=== PATIENT | male | born 2000 | race Caucasian/White ===

== ENCOUNTER 2023-02-06 12:31 | Emergency (ER) | payer MEDICAID, SELFPAY ==
[2023-02-06 12:49] VITALS: BP 146/79; PULSE 90; RESP 16; TEMP 37.1; O2SAT 100; BMI 31.1
--- NOTE | 2023-02-06 13:00 | ED_ITS ---
HPI - General Adult General Chief complaint: Skin/Abscess/Foreign Body Stated complaint: infected left thumb Time Seen by Provider: 02/06/23 12:55 Source: patient Mode of arrival: ambulatory Limitations: no limitations History of Present Illness HPI narrative: 22-year-old male coming in today complaining of infection is some these notice for several days. Denies any systemic symptoms. States that he bites his nails and cuticles frequently. Related Data Previous Rx's Medication Instructions Recorded sulfamethoxazole 800 1 tab PO BID 7 days #14 tabs 02/06/23 mg-trimethoprim 160 mg tablet (Bactrim DS) Allergies Allergy/AdvReac Type Severity Reaction Status Date / Time No Known Drug Allergies Allergy Verified 02/06/23 12:48 Review of Systems Status of ROS: Reports: 6 or more systems reviewed and unremarkable except as noted in History and below PFSH [facility] Social History Smoking Status: Never smoker Do you use any of these nicotine containing products: None Second hand tobacco smoke exposure: No How often do you have a drink containing alcohol: never AUDIT-C Alcohol total score: 0 Non-prescribed substance use: marijuana (any form) service: No Exam Narrative: Exam Narrative: Anxious young male. Alert and oriented. Answers questions appropriately. Mood and affect are appropriate. Thoughts are goal oriented and rational. No tangential or magical thinking noted. Patient speaks in full sentences without needing to catch his breath. HEENT: Normocephalic atraumatic. Pupils are equally round reactive to light. Extraocular muscles are intact. Conjunctivae are moist without any icterus noted. Moist mucous membranes. Extremities: Patient has an obvious paronychia of the left thumb with a small abscess that is visible over the lateral nail border. Const: Vital Signs, click to edit/add: Vital Signs - 24 hr 02/06/23 12:49 Temperature 98.8 F Pulse Rate [Pulse Oximeter] 90 Respiratory Rate 16 Blood Pressure [Ri ght Upper Arm] 146/79 H Pulse Oximetry 100 Oxygen Delivery Me thod Room Air Course Course Hospital Course: Finger clean with alcohol an 11 blade inserted at the tip of the abscess, approximately 0.5 mL of dylan pus drained. Vital Signs Vital signs: Initial Vital Signs Temperature 98.8 F 02/06/23 12:49 Temperature Source Temporal Artery Scan 02/06/23 12:49 Pulse Rate 90 02/06/23 12:49 Pulse Rhythm Regular 02/06/23 12:49 Pulse Strength 3+ Normal 02/06/23 12:49 Respiratory Rate 16 02/06/23 12:49 Blood Pressure 146/79 H 02/06/23 12:49 Blood Pressure Mean 101 02/06/23 12:49 Blood Pressure Position Sitting 02/06/23 12:49 Pulse Oximetry 100 02/06/23 12:49 Oxygen Delivery Method Room Air 02/06/23 12:49 Vital Signs Temperature 98.8 F 02/06/23 12:49 Pulse Rate 90 02/06/23 12:49 Respiratory Rate 16 02/06/23 12:49 Blood Pressure 146/79 H 02/06/23 12:49 Pulse Oximetry 100 02/06/23 12:49 Oxygen Delivery Method Room Air 02/06/23 12:49 Temperature 98.8 F 02/06/23 12:49 Pulse Rate 90 02/06/23 12:49 Respiratory Rate 16 02/06/23 12:49 Blood Pressure 146/79 H 02/06/23 12:49 Pulse Oximetry 100 02/06/23 12:49 Oxygen Delivery Method Room Air 02/06/23 12:49 Medical Decision Making MDM Narrative Medical decision making narrative: 22-year-old male with paronychia. Patient will be placed on Bactrim for the next week. We discussed wound hygiene and reasons for follow-up. Discharge Plan Discharge Clinical Impression: Paronychia Patient Disposition: Home, Self-Care Condition: Stable Additional Instructions: Refrain from biting nails in the future. Keep thumb clean and dry. Okay to wash hands with soapy water frequently throughout the day. Take all antibiotics as prescribed. Prescriptions: New sulfamethoxazole-trimethoprim [Bactrim DS] 800-160 mg tablet 1 tab PO BID 7 Days Qty: 14 0RF Stand Alone Forms: [facility] Info Instructions
[2023-02-06 13:18] VITALS: PULSE 81; RESP 16; TEMP 37.1
== END 2023-02-06 13:18 | disposition home or self-care (01) ==
LOC: ED 13:11
PROVIDERS: Emergency Provider Family Medicine
DX: L03.012 Cellulitis of left finger (principal)
CPT/HCPCS: 10060; 99283; 99284

== ENCOUNTER 2024-04-21 12:34 | Emergency (ER) | payer MEDICAID, SELFPAY ==
[2024-04-21] VITALS (21 sets, daily range): BP systolic 101–149; BP diastolic 67–93; PULSE 75–129; RESP 20; TEMP 36.1; O2SAT 96–100
--- NOTE | 2024-04-21 14:53 | ED_ITS ---
HPI - Chest Pain General Time Seen by Provider: 14:53 <Viky Gurrola MD - Last Filed: 04/21/24 16:55> Date Seen: 04/21/24 <Viky Gurrola MD - Last Filed: 04/21/24 16:55> Chief Complaint: Chest Pain <Viky Gurrola MD - Last Filed: 04/21/24 16:55> Stated Complaint: immense chest pain <Viky Gurrola MD - Last Filed: 04/21/24 16:55> Time Seen by Provider: 04/21/24 14:52 <Viky Gurrola MD - Last Filed: 04/21/24 16:55> Source: patient and RN notes reviewed <Viky Gurrola MD - Last Filed: 04/21/24 16:55> Mode of arrival: ambulatory <Viky Gurrola MD - Last Filed: 04/21/24 16:55> Limitations: no limitations <Viky Gurrola MD - Last Filed: 04/21/24 16:55> History of Present Illness HPI narrative: Nicholas is a 23-year-old male previously healthy except for Crohn's disease for which he does not take any meds who comes to the emergency room for evaluation of chest pain, headache, weight loss and recent fever. Nicholas notes that he has had chest pain for approximately a year usually associated with activity but it can occur well sitting. 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 He notes that sometimes it feels like he has pins and needles squeezing his heart. It is definitely worse with deep breathing and he is short of breath when this happens. He denies any trauma. He does not smoke and quit vaping 3-4 days ago. Denies drug use. Yesterday he had a fever up to 102 but has dissipated today. He denies any cough or sore throat. He has also noticed diarrhea over the past 3-4 days and states that he has lost 30 lb in the last 3 days. He has lost his appetite. He notes that he has been experiencing headaches over the past week. He shows this to be the frontal scalp area with radiation into the temples bilaterally. He notes that he has a lot of photophobia and yesterday he vomited 3 times at work. He does not usually get headaches and has not taken anything for his headaches at this point. Nicholas denies any blood in his stool. He has had no known ill contacts. He has no cough. <Viky Gurrola MD - Last Filed: 04/21/24 16:55> Related Data Home Medications: Home Medications ?Medication ?Instructions ?Recorded ?Confirmed No Known Home Medications 04/21/24 04/21/24 <Viky Gurrola MD - Last Filed: 04/21/24 16:55> Allergies/Adverse Reactions: Allergies Allergy/AdvReac Type Severity Reaction Status Date / Time No Known Drug Allergies Allergy Verified 04/21/24 12:56 <Viky Gurrola MD - Last Filed: 04/21/24 16:55> Review of Systems Status of ROS Reports: 10 or more systems reviewed and unremarkable except as noted in History and below <Viky Gurrola MD - Last Filed: 04/21/24 16:55> Const Reports: fever (Yesterday up to 102) and fatigue <Viky Gurrola MD - Last Filed: 04/21/24 16:55> Eyes Reports: other (Photophobia); Denies: change in vision <Viky Gurrola MD - Last Filed: 04/21/24 16:55> ENMT Denies: throat pain, neck pain, throat swelling or nasal congestion <Viky Gurrola MD - Last Filed: 04/21/24 16:55> Cardio Reports: chest pain and shortness of breath with exertion; Denies: palpitations, edema or swelling of feet/ankles <Viky Gurrola MD - Last Filed: 04/21/24 16:55> Resp Reports: shortness of breath; Denies: cough <Viky Gurrola MD - Last Filed: 04/21/24 16:55> GI Reports: nausea, vomiting and diarrhea; Denies: abdominal pain <Viky Gurrola MD - Last Filed: 04/21/24 16:55> Denies: painful urination <Viky Gurrola MD - Last Filed: 04/21/24 16:55> Musculo Denies: neck pain <Viky Gurrola MD - Last Filed: 04/21/24 16:55> Neuro Reports: headache; Denies: lack of coordination or slurred speech <Viky Gurrola MD - Last Filed: 04/21/24 16:55> Psych Reports: anxiety <Viky Gurrola MD - Last Filed: 04/21/24 16:55> Endo Reports: fatigue <Viky Gurrola MD - Last Filed: 04/21/24 16:55> Allergy/Immuno Denies: throat swelling <Viky Gurrola MD - Last Filed: 04/21/24 16:55> PFSH PFSH Social History: Social History Smoking Status: Never smoker Do you use any of these nicotine containing products: None Second hand tobacco smoke exposure: No How often do you have a drink containing alcohol: never How often do you have six or more drinks on one occasion: Never AUDIT-C Alcohol total score: 0 Non-prescribed substance use: marijuana (any form) service: No <Viky Gurrola MD - Last Filed: 04/21/24 16:55> Exam Narrative Exam Narrative: Alert and oriented. Anxiety noted. EOM is full and pupils equal round reactive. Able to look at light with no difficulty. Head is atraumatic normocephalic. Neck is supple without lymphadenopathy. No posterior lymphadenopathy. Oral cavity with moist mucous membranes. No erythema exudate noted. Heart with a regular rate and rhythm now in the 90s. Lungs are clear bilaterally. Abdomen is soft nontender. Lower extremities without edema. Moving all extremities. <Viky Gurrola MD - Last Filed: 04/21/24 16:55> Const Vital Signs, click to edit/add: Vital Signs - 24 hr 04/21/24 12:49 04/21/24 15:00 04/21/24 15:02 Temperature 96.9 F L Pulse Rate 83 84 Pulse Rate [Pulse Oximeter] 129 H Respiratory Rate 20 Blood Pressure 117/85 Blood Pressure [Right Upper Arm] 149/91 H Pulse Oximetry 98 98 98 Oxygen Delivery Method Room Air 04/21/24 15:02 04/21/24 15:15 04/21/24 15:33 Temperature Pulse Rate 84 97 Pulse Rate [Pulse Oximeter] Respiratory Rate Blood Pressure 117/85 141/93 H Blood Pressure [Right Upper Arm] Pulse Oximetry 98 97 Oxygen Delivery Method 04/21/24 15:54 04/21/24 16:00 04/21/24 16:03 Temperature Pulse Rate 86 81 80 Pulse Rate [Pulse Oximeter] Respiratory Rate Blood Pressure 104/67 Blood Pressure [Right Upper Arm] Pulse Oximetry 99 99 100 Oxygen Delivery Method 04/21/24 16:15 04/21/24 16:30 04/21/24 16:31 Temperature Pulse Rate 75 82 82 Pulse Rate [Pulse Oximeter] Respiratory Rate Blood Pressure 101/80 Blood Pressure [Right Upper Arm] Pulse Oximetry 98 98 98 Oxygen Delivery Method 04/21/24 16:32 04/21/24 16:45 04/21/24 17:00 Temperature Pulse Rate 79 81 78 Pulse Rate [Pulse Oximeter] Respiratory Rate Blood Pressure Blood Pressure [Right Upper Arm] Pulse Oximetry 96 99 97 Oxygen Delivery Method 04/21/24 17:01 04/21/24 17:15 04/21/24 17:30 Temperature Pulse Rate 79 78 84 Pulse Rate [Pulse Oximeter] Respiratory Rate Blood Pressure 105/70 Blood Pressure [Right Upper Arm] Pulse Oximetry 98 98 99 Oxygen Delivery Method 04/21/24 17:33 04/21/24 17:45 Temperature Pulse Rate 80 89 Pulse Rate [Pulse Oximeter] Respiratory Rate Blood Pressure Blood Pressure [Right Upper Arm] Pulse Oximetry 98 97 Oxygen Delivery Method <Viky Gurrola MD - Last Filed: 04/21/24 16:55> Vital Signs - 24 hr 04/21/24 12:49 04/21/24 15:00 04/21/24 15:02 Temperature 96.9 F L Pulse Rate 83 84 Pulse Rate [Pulse Oximeter] 129 H Respiratory Rate 20 Blood Pressure 117/85 Blood Pressure [Right Upper Arm] 149/91 H Pulse Oximetry 98 98 98 Oxygen Delivery Method Room Air 04/21/24 15:02 04/21/24 15:15 04/21/24 15:33 Temperature Pulse Rate 84 97 Pulse Rate [Pulse Oximeter] Respiratory Rate Blood Pressure 117/85 141/93 H Blood Pressure [Right Upper Arm] Pulse Oximetry 98 97 Oxygen Delivery Method 04/21/24 15:54 04/21/24 16:00 04/21/24 16:03 Temperature Pulse Rate 86 81 80 Pulse Rate [Pulse Oximeter] Respiratory Rate Blood Pressure 104/67 Blood Pressure [Right Upper Arm] Pulse Oximetry 99 99 100 Oxygen Delivery Method 04/21/24 16:15 04/21/24 16:30 04/21/24 16:31 Temperature Pulse Rate 75 82 82 Pulse Rate [Pulse Oximeter] Respiratory Rate Blood Pressure 101/80 Blood Pressure [Right Upper Arm] Pulse Oximetry 98 98 98 Oxygen Delivery Method 04/21/24 16:32 04/21/24 16:45 04/21/24 17:00 Temperature Pulse Rate 79 81 78 Pulse Rate [Pulse Oximeter] Respiratory Rate Blood Pressure Blood Pressure [Right Upper Arm] Pulse Oximetry 96 99 97 Oxygen Delivery Method 04/21/24 17:01 04/21/24 17:15 04/21/24 17:30 Temperature Pulse Rate 79 78 84 Pulse Rate [Pulse Oximeter] Respiratory Rate Blood Pressure 105/70 Blood Pressure [Right Upper Arm] Pulse Oximetry 98 98 99 Oxygen Delivery Method 04/21/24 17:33 04/21/24 17:45 Temperature Pulse Rate 80 89 Pulse Rate [Pulse Oximeter] Respiratory Rate Blood Pressure Blood Pressure [Right Upper Arm] Pulse Oximetry 98 97 Oxygen Delivery Method <Matthew Begum MD - Last Filed: 04/21/24 18:08> Documenting provider has reviewed patient's vital signs: yes <Viky Gurrola MD - Last Filed: 04/21/24 16:55> Course Course ED Course: Differential diagnosis includes but is not limited to COVID, viral syndrome, migraine, pericarditis, acute coronary syndrome, pneumothorax, pneumonia, anxiety. IV will be placed and will draw labs include CBC, comprehensive panel, D-dimer, troponin, urinalysis, chest x-ray. Will treat headache with Reglan 10 mg and Benadryl 50 mg and 500 mL normal saline. EKG and monitoring manager ordered as well. <Viky Gurrola MD - Last Filed: 04/21/24 16:55> Reevaluation(s) Reevaluation #1: Patient noted to have resolution of headache and chest pain after Benadryl and Reglan and fluids. At this time waiting on a D-dimer and patient will have a 2nd EKG and troponin at 1735 hours. No pulse has now returned to normal at 82. He has not been febrile here. Labs include a normal white count she, platelets, hemoglobin, electrolyte panel, CRP is normal and urinalysis well concentrated is without evidence of UTI. He has tested negative for COVID influenza RSV and strep. And his chest x-ray is reassuring. <Viky Gurrola MD - Last Filed: 04/21/24 16:55> Patient noted to have resolution of headache and chest pain after Benadryl and Reglan and fluids. At this time waiting on a D-dimer and patient will have a 2nd EKG and troponin at 1735 hours. Now pulse has now returned to normal at 82. He has not been febrile here. Labs include a normal white count, platelets, hemoglobin, electrolyte panel, CRP is normal and urinalysis well concentrated is without evidence of UTI. He has leelee shwetha negative for COVID influenza RSV and strep. And his chest x-ray is reassuring. <Matthew Begum MD - Last Filed: 04/21/24 18:08> Time of Reevaluation #2: 17:44 <Matthew Begum MD - Last Filed: 04/21/24 18:08> Reevaluation #2: Patient accepted in sign-out from prior provider, please see note for complete history and physical. Briefly, a 23-year-old with longstanding chest pain and other medical concerns, presents for evaluation. Initial evaluation with tachycardia, no other focal physical findings. Labs independently interpreted by me with normal CBC, normal basic panel, negative CRP, normal hepatic panel, negative urinalysis, negative respiratory panel. Initial troponin 0. At time of sign-out D-dimer, repeat EKG and troponin are pending. EKG independently interpreted by me performed at 4:40 p.m. demonstrates sinus rhythm rate 73, no acute ST elevations or depressions, normal intervals, normal axis, QTC 401, SC 152. Compared to prior of earlier today, rate has decreased. <Matthew Begum MD - Last Filed: 04/21/24 18:08> Time of Reevaluation #3: 18:07 <Matthew Begum MD - Last Filed: 04/21/24 18:08> Reevaluation #3: Repeat troponin is negative, D-dimer is negative. Patient is stable for discharge with outpatient follow-up. <Matthew Begum MD - Last Filed: 04/21/24 18:08> Vital Signs Vital signs: Initial Vital Signs Temperature 96.9 F L 04/21/24 12:49 Temperature Source Temporal Artery Scan 04/21/24 12:49 Pulse Rate 129 H 04/21/24 12:49 Pulse Rhythm Regular 04/21/24 12:49 Respiratory Rate 20 04/21/24 12:49 Blood Pressure 149/91 H 04/21/24 12:49 Blood Pressure Mean 110 H 04/21/24 12:49 Blood Pressure Position Sitting 04/21/24 12:49 Pulse Oximetry 98 04/21/24 12:49 Oxygen Delivery Method Room Air 04/21/24 12:49 Vital Signs Temperature 96.9 F L 04/21/24 12:49 Pulse Rate 129 H 04/21/24 12:49 Respiratory Rate 20 04/21/24 12:49 Blood Pressure 149/91 H 04/21/24 12:49 Pulse Oximetry 98 04/21/24 12:49 Oxygen Delivery Method Room Air 04/21/24 12:49 Temperature 96.9 F L 04/21/24 12:49 Pulse Rate 89 04/21/24 17:45 Respiratory Rate 20 04/21/24 12:49 Blood Pressure 105/70 04/21/24 17:01 Pulse Oximetry 97 04/21/24 17:45 Oxygen Delivery Method Room Air 04/21/24 12:49 <Viky Gurrola MD - Last Filed: 04/21/24 16:55> Initial Vital Signs Temperature 96.9 F L 04/21/24 12:49 Temperature Source Temporal Artery Scan 04/21/24 12:49 Pulse Rate 129 H 04/21/24 12:49 Pulse Rhythm Regular 04/21/24 12:49 Respiratory Rate 20 04/21/24 12:49 Blood Pressure 149/91 H 04/21/24 12:49 Blood Pressure Mean 110 H 04/21/24 12:49 Blood Pressure Position Sitting 04/21/24 12:49 Pulse Oximetry 98 04/21/24 12:49 Oxygen Delivery Method Room Air 04/21/24 12:49 Vital Signs Temperature 96.9 F L 04/21/24 12:49 Pulse Rate 129 H 04/21/24 12:49 Respiratory Rate 20 04/21/24 12:49 Blood Pressure 149/91 H 04/21/24 12:49 Pulse Oximetry 98 04/21/24 12:49 Oxygen Delivery Method Room Air 04/21/24 12:49 Temperature 96.9 F L 04/21/24 12:49 Pulse Rate 89 04/21/24 17:45 Respiratory Rate 20 04/21/24 12:49 Blood Pressure 105/70 04/21/24 17:01 Pulse Oximetry 97 04/21/24 17:45 Oxygen Delivery Method Room Air 04/21/24 12:49 <Matthew Begum MD - Last Filed: 04/21/24 18:08> Medications Administered Medications: Discontinued Medications Generic Name Dose Route Start Last Admin Trade Name Freq PRN Reason Stop Dose Admin Diphenhydramine HCl 50 mg 04/21/24 15:10 04/21/24 15:45 Diphenhydramine 50 Mg/Ml Inj IVP 04/21/24 15:11 50 mg ONCE ONE Administration Metoclopramide HCl 10 mg/ 102 mls @ 306 mls/hr 04/21/24 15:10 04/21/24 16:10 Sodium Chloride IVPB 04/21/24 15:11 Infused ONCE ONE Infusion Sodium Chloride 500 mls @ 500 mls/hr 04/21/24 15:12 04/21/24 17:00 0.9 % Sodium Chloride 500 Ml IV 04/21/24 16:11 Infused .Q1H ONE Infusion <Viky Gurrola MD - Last Filed: 04/21/24 16:55> Discontinued Medications Generic Name Dose Route Start Last Admin Trade Name Freq PRN Reason Stop Dose Admin Diphenhydramine HCl 50 mg 04/21/24 15:10 04/21/24 15:45 Diphenhydramine 50 Mg/Ml Inj IVP 04/21/24 15:11 50 mg ONCE ONE Administration Metoclopramide HCl 10 mg/ 102 mls @ 306 mls/hr 04/21/24 15:10 04/21/24 16:10 Sodium Chloride IVPB 04/21/24 15:11 Infused ONCE ONE Infusion Sodium Chloride 500 mls @ 500 mls/hr 04/21/24 15:12 04/21/24 17:00 0.9 % Sodium Chloride 500 Ml IV 04/21/24 16:11 Infused .Q1H ONE Infusion <Matthew Begum MD - Last Filed: 04/21/24 18:08> MDM - Chest Pain MDM Narrative Medical decision making narrative: 1. Headache-resolved after Reglan and Benadryl and IV fluids. With history of fever yesterday headache for a week diarrhea over the last couple days I did wonder if this was viral related but he has tested negative for COVID. At this time he is much improved. 2. Atypical Chest pain-EKG without EKG G changes and initial troponin is negative. This has now resolved while in the ED. D-dimer is pending as is a 2nd troponin and EKG at 1730 hours. 3. History of Crohn's disease with diarrhea-no blood in stool 4. Disposition-this patient is signed out to my partner Dr. Begum for recheck of troponin, EKG and D-dimer. <Viky Gurrola MD - Last Filed: 04/21/24 16:55> Medical Records Data Attestation: I reviewed the patient's medical records. <Viky Gurrola MD - Last Filed: 04/21/24 16:55> Lab Data Attestation: I reviewed the patient's lab results. <Viky Gurrola MD - Last Filed: 04/21/24 16:55> Labs: Lab Results 04/21/24 04/21/24 04/21/24 Range/Units 15:11 15:26 15:44 WBC 10.07 (4.50-11.00) K/uL RBC 5.79 (4.30-5.90) m/uL Hgb 16.1 (13.5-17.5) gm/dL Hct 48.3 (37.0-53.0) % MCV 83 (80-100) fL MCH 28 (26-34) pg MCHC 33 (32-36) gm/dL RDW Coeff of Betza[place] 13.2 (11.5-15.5) % Plt Count 144 (140-440) K/uL Neut % (Auto) 82.3 H (42.0-72.0) % Lymph % (Auto) 12.2 L (20-44) % [place] % (Auto) 4.3 (0.0-11.0) % Eos % (Auto) 0.5 (0.0-7.0) % Baso % (Auto) 0.3 (0.0-3.0) % Neut # (Auto) 8.30 H (1.7-7.0) K/uL Lymph # (Auto) 1.20 (0.90-2.90) K/uL [place] # (Auto) 0.40 (0.00-0.90) K/UL Eos # (Auto) 0.05 (0.00-0.50) K/uL Baso # (Auto) 0.03 (0.00-0.30) K/uL Abs Immat Gran (auto) 0.04 (0.00-0.30) K/uL Imm/Tot Granulo (auto) 0.4 % D-Dimer Quant (PE/DVT) (0.00-0.50) ug/ml Sodium 138 (135-149) mmol/L Potassium 3.9 (3.6-5.1) mmol/L Chloride 104 (96-114) mmol/L Carbon Dioxide 22 (20-32) mmol/L Anion Gap 12 (7-15) mEq/L BUN 12 (5-24) mg/dL Creatinine 0.8 (0.5-1.5) mg/dL Estimated GFR 126 ml/min Glucose 99 (60-115) mg/dL Calcium 9.7 (8.4-10.6) mg/dL Total Bilirubin 0.5 (0.1-1.5) mg/dL AST 32 (12-35) U/L ALT 36 (4-50) U/L Alkaline Phosphatase 107 (40-150) U/L C-Reactive Protein < 0.5 L (0.5-1.0) mg/dL Total Protein 8.5 H (6.0-8.3) g/dL Albumin 5.1 H (3.3-5.0) g/dL Urine Color Yellow (Yellow) Urine Appearance Clear (Clear) Urine pH 6.0 (5.0-8.5) Ur Specific [place] >= 1.030 (1.000-1.030) Urine Protein 1+ A (Negative) Urine Glucose (UA) Negative (Negative) Urine Ketones 1+ A (Negative) Urine Blood Negative (Negative) Urine Nitrite Negative (Negative) Urine Bilirubin Negative (Negative) Urine Urobilinogen 0.2 (0.2-1.0) Ur Leukocyte Esterase Negative (Negative) Urine RBC 0-2 (0-2) Urine WBC 0-2 (0-5) Ur Squamous Epith Cells Few (None-Few) Urine Bacteria Few A (None) Hyaline Casts Few (None-Few) Urine Mucus Few A (None) SARS-CoV-2 (PCR) Negative SARS-CoV-2 (Negative) Influenza Type A (PCR) Negative PCR FLU A (Negative) Influenza Type B (PCR) Negative PCR FLU B (Negative) RSV (PCR) Negative PCR RSV (Negative) Group A Strep DNA NOT DETECTED (Not Detectd) Lab Acknowledgement POC Troponin I 0.00 L (0.01-0.04) ng/ml 04/21/24 04/21/24 04/21/24 Range/Units 16:00 16:20 17:35 WBC (4.50-11.00) K/uL RBC (4.30-5.90) m/uL Hgb (13.5-17.5) gm/dL Hct (37.0-53.0) % MCV (80-100) fL MCH (26-34) pg MCHC (32-36) gm/dL RDW Coeff of Betza[place] (11.5-15.5) % Plt Count (140-440) K/uL Neut % (Auto) (42.0-72.0) % Lymph % (Auto) (20-44) % [place] % (Auto) (0.0-11.0) % Eos % (Auto) (0.0-7.0) % Baso % (Auto) (0.0-3.0) % Neut # (Auto) (1.7-7.0) K/uL Lymph # (Auto) (0.90-2.90) K/uL [place] # (Auto) (0.00-0.90) K/UL Eos # (Auto) (0.00-0.50) K/uL Baso # (Auto) (0.00-0.30) K/uL Abs Immat Gran (auto) (0.00-0.30) K/uL Imm/Tot Granulo (auto) % D-Dimer Quant (PE/DVT) < 0.27 (0.00-0.50) ug/ml Sodium (135-149) mmol/L Potassium (3.6-5.1) mmol/L Chloride (96-114) mmol/L Carbon Dioxide (20-32) mmol/L Anion Gap (7-15) mEq/L BUN (5-24) mg/dL Creatinine (0.5-1.5) mg/dL Estimated GFR ml/min Glucose (60-115) mg/dL Calcium (8.4-10.6) mg/dL Total Bilirubin (0.1-1.5) mg/dL AST (12-35) U/L ALT (4-50) U/L Alkaline Phosphatase (40-150) U/L C-Reactive Protein (0.5-1.0) mg/dL Total Protein (6.0-8.3) g/dL Albumin (3.3-5.0) g/dL Urine Color (Yellow) Urine Appearance (Clear) Urine pH (5.0-8.5) Ur Specific [place] (1.000-1.030) Urine Protein (Negative) Urine Glucose (UA) (Negative) Urine Ketones (Negative) Urine Blood (Negative) Urine Nitrite (Negative) Urine Bilirubin (Negative) Urine Urobilinogen (0.2-1.0) Ur Leukocyte Esterase (Negative) Urine RBC (0-2) Urine WBC (0-5) Ur Squamous Epith Cells (None-Few) Urine Bacteria (None) Hyaline Casts (None-Few) Urine Mucus (None) SARS-CoV-2 (PCR) (Negative) Influenza Type A (PCR) (Negative) Influenza Type B (PCR) (Negative) RSV (PCR) (Negative) Group A Strep DNA (Not Detectd) Lab Acknowledgement Test Added POC Troponin I 0.00 L (0.01-0.04) ng/ml <Viky Gurrola MD - Last Filed: 04/21/24 16:55> Lab Results 04/21/24 04/21/24 04/21/24 Range/Units 15:11 15:26 15:44 WBC 10.07 (4.50-11.00) K/uL RBC 5.79 (4.30-5.90) m/uL Hgb 16.1 (13.5-17.5) gm/dL Hct 48.3 (37.0-53.0) % MCV 83 (80-100) fL MCH 28 (26-34) pg MCHC 33 (32-36) gm/dL RDW Coeff of Betza[place] 13.2 (11.5-15.5) % Plt Count 144 (140-440) K/uL Neut % (Auto) 82.3 H (42.0-72.0) % Lymph % (Auto) 12.2 L (20-44) % [place] % (Auto) 4.3 (0.0-11.0) % Eos % (Auto) 0.5 (0.0-7.0) % Baso % (Auto) 0.3 (0.0-3.0) % Neut # (Auto) 8.30 H (1.7-7.0) K/uL Lymph # (Auto) 1.20 (0.90-2.90) K/uL [place] # (Auto) 0.40 (0.00-0.90) K/UL Eos # (Auto) 0.05 (0.00-0.50) K/uL Baso # (Auto) 0.03 (0.00-0.30) K/uL Abs Immat Gran (auto) 0.04 (0.00-0.30) K/uL Imm/Tot Granulo (auto) 0.4 % D-Dimer Quant (PE/DVT) (0.00-0.50) ug/ml Sodium 138 (135-149) mmol/L Potassium 3.9 (3.6-5.1) mmol/L Chloride 104 (96-114) mmol/L Carbon Dioxide 22 (20-32) mmol/L Anion Gap 12 (7-15) mEq/L BUN 12 (5-24) mg/dL Creatinine 0.8 (0.5-1.5) mg/dL Estimated GFR 126 ml/min Glucose 99 (60-115) mg/dL Calcium 9.7 (8.4-10.6) mg/dL Total Bilirubin 0.5 (0.1-1.5) mg/dL AST 32 (12-35) U/L ALT 36 (4-50) U/L Alkaline Phosphatase 107 (40-150) U/L C-Reactive Protein < 0.5 L (0.5-1.0) mg/dL Total Protein 8.5 H (6.0-8.3) g/dL Albumin 5.1 H (3.3-5.0) g/dL Urine Color Yellow (Yellow) Urine Appearance Clear (Clear) Urine pH 6.0 (5.0-8.5) Ur Specific [place] >= 1.030 (1.000-1.030) Urine Protein 1+ A (Negative) Urine Glucose (UA) Negative (Negative) Urine Ketones 1+ A (Negative) Urine Blood Negative (Negative) Urine Nitrite Negative (Negative) Urine Bilirubin Negative (Negative) Urine Urobilinogen 0.2 (0.2-1.0) Ur Leukocyte Esterase Negative (Negative) Urine RBC 0-2 (0-2) Urine WBC 0-2 (0-5) Ur Squamous Epith Cells Few (None-Few) Urine Bacteria Few A (None) Hyaline Casts Few (None-Few) Urine Mucus Few A (None) SARS-CoV-2 (PCR) Negative SARS-CoV-2 (Negative) Influenza Type A (PCR) Negative PCR FLU A (Negative) Influenza Type B (PCR) Negative PCR FLU B (Negative) RSV (PCR) Negative PCR RSV (Negative) Group A Strep DNA NOT DETECTED (Not Detectd) Lab Acknowledgement POC Troponin I 0.00 L (0.01-0.04) ng/ml 04/21/24 04/21/24 04/21/24 Range/Units 16:00 16:20 17:35 WBC (4.50-11.00) K/uL RBC (4.30-5.90) m/uL Hgb (13.5-17.5) gm/dL Hct (37.0-53.0) % MCV (80-100) fL MCH (26-34) pg MCHC (32-36) gm/dL RDW Coeff of Betza[place] (11.5-15.5) % Plt Count (140-440) K/uL Neut % (Auto) (42.0-72.0) % Lymph % (Auto) (20-44) % [place] % (Auto) (0.0-11.0) % Eos % (Auto) (0.0-7.0) % Baso % (Auto) (0.0-3.0) % Neut # (Auto) (1.7-7.0) K/uL Lymph # (Auto) (0.90-2.90) K/uL [place] # (Auto) (0.00-0.90) K/UL Eos # (Auto) (0.00-0.50) K/uL Baso # (Auto) (0.00-0.30) K/uL Abs Immat Gran (auto) (0.00-0.30) K/uL Imm/Tot Granulo (auto) % D-Dimer Quant (PE/DVT) < 0.27 (0.00-0.50) ug/ml Sodium (135-149) mmol/L Potassium (3.6-5.1) mmol/L Chloride (96-114) mmol/L Carbon Dioxide (20-32) mmol/L Anion Gap (7-15) mEq/L BUN (5-24) mg/dL Creatinine (0.5-1.5) mg/dL Estimated GFR ml/min Glucose (60-115) mg/dL Calcium (8.4-10.6) mg/dL Total Bilirubin (0.1-1.5) mg/dL AST (12-35) U/L ALT (4-50) U/L Alkaline Phosphatase (40-150) U/L C-Reactive Protein (0.5-1.0) mg/dL Total Protein (6.0-8.3) g/dL Albumin (3.3-5.0) g/dL Urine Color (Yellow) Urine Appearance (Clear) Urine pH (5.0-8.5) Ur Specific [place] (1.000-1.030) Urine Protein (Negative) Urine Glucose (UA) (Negative) Urine Ketones (Negative) Urine Blood (Negative) Urine Nitrite (Negative) Urine Bilirubin (Negative) Urine Urobilinogen (0.2-1.0) Ur Leukocyte Esterase (Negative) Urine RBC (0-2) Urine WBC (0-5) Ur Squamous Epith Cells (None-Few) Urine Bacteria (None) Hyaline Casts (None-Few) Urine Mucus (None) SARS-CoV-2 (PCR) (Negative) Influenza Type A (PCR) (Negative) Influenza Type B (PCR) (Negative) RSV (PCR) (Negative) Group A Strep DNA (Not Detectd) Lab Acknowledgement Test Added POC Troponin I 0.00 L (0.01-0.04) ng/ml <Matthew Begum MD - Last Filed: 04/21/24 18:08> Imaging Data Chest x-ray: Attestation: I have reviewed the pertinent imaging results. <Viky Gurrola MD - Last Filed: 04/21/24 16:55> My impression: No acute infiltrates identified. <Viky Gurrola MD - Last Filed: 04/21/24 16:55> Radiologist's impression: Cardiovascular and mediastinum: Cardiomediastinal silhouette is within normal limits. Lungs and pleural spaces: Lungs are clear. No evidence of pleural effusion. No pneumothorax identified. Bones and soft tissues: Unremarkable. IMPRESSION: No acute cardiopulmonary process identified. <Viky Gurrola MD - Last Filed: 04/21/24 16:55> ECG Data Attestation: I personally reviewed and interpreted this ECG as follows: <Viky Gurrola MD - Last Filed: 04/21/24 16:55> ECG interpretation date: 04/21/24 <Viky Gurrola MD - Last Filed: 04/21/24 16:55> Interpretation: EKG by my read shows sinus tachycardia at a rate of 115. I do not note any acute ST or T-wave changes. Normal QT and SC intervals. <Viky Gurrola MD - Last Filed: 04/21/24 16:55> Discharge Plan Discharge Clinical Impression: Atypical chest pain, Headache, Diarrhea, History of Crohn's disease <Viky Gurrola MD - Last Filed: 04/21/24 16:55> Condition: Improved <Viky Gurrola MD - Last Filed: 04/21/24 16:55> Instructions: Chest Pain (ED) <Viky Gurrola MD - Last Filed: 04/21/24 16:55> Additional Instructions: Follow-up with your primary clinic or MD for recheck. Return to the emergency room for worsening symptoms. <Viky Gurrola MD - Last Filed: 04/21/24 16:55> Prescriptions: No Action No Known Home Medications <Viky Gurrola MD - Last Filed: 04/21/24 16:55> Follow Up/Referrals: Provider,Not a Local [Primary Care Provider] - <Viky Gurrola MD - Last Filed: 04/21/24 16:55>
--- NOTE | 2024-04-21 15:10 | CRLHL7_ITS ---
For Patients: As a result of the Century Cures Act, medical imaging exams and procedure reports are released immediately into your electronic medical record. You may view this report before your referring provider. If you have questions, please contact your health care provider. INDICATION: Chest pain. TECHNIQUE: Chest 1 view. COMPARISON: None. FINDINGS: Cardiovascular and mediastinum: Cardiomediastinal silhouette is within normal limits. Lungs and pleural spaces: Lungs are clear. No evidence of pleural effusion. No pneumothorax identified. Bones and soft tissues: Unremarkable. IMPRESSION: No acute cardiopulmonary process identified. Dictated by Liz Santana MD @ 04/21/2024 3:47:59 PM (Electronically Signed)
[2024-04-21 15:40] LABS: Hematocrit 48.3 % (37.0-53.0); Hemoglobin* 16.1 gm/dL (13.5-17.5); Lymphocytes Percent Auto 12.2 % (20-44); Mean Corpuscular HGB Conc 33 gm/dL (32-36); Mean Corpuscular Hemoglobin 28 pg (26-34); Mean Corpuscular Volume 83 fL (80-100); Monocytes Percent Auto 4.3 % (0.0-11.0); Neutrophils Percent Auto 82.3 % (42.0-72.0); Platelet Count* 144 K/uL (140-440); RDW Coefficient of Variation % 13.2 % (11.5-15.5); Red Blood Count 5.79 m/uL (4.30-5.90); White Blood Count* 10.07 K/uL (4.50-11.00)
[2024-04-21 15:41] LABS: Basophils Absolute Auto 0.03 K/uL (0.00-0.30); Basophils Percent Auto 0.3 % (0.0-3.0); Eosinophils Absolute Auto 0.05 K/uL (0.00-0.50); Eosinophils Percent Auto 0.5 % (0.0-7.0); Immature Granulocytes Abs Auto 0.04 K/uL (0.00-0.30); Immature Granulocytes Pct Auto 0.4 %
[2024-04-21 15:43] LABS: Slide Review Reflex No
[2024-04-21] MEDS: diphenhydrAMINE 50 MG/ML inj IVP (15:45)
[2024-04-21] MEDS: METOCLOPRAMIDE HCL 10 MG in 0.9 % SODIUM CHLORIDE 100 ml 100 ML 306 MG IVPB (15:48)
[2024-04-21] MEDS: 0.9 % SODIUM CHLORIDE 500 ML 500 ML IV (15:51)
[2024-04-21 15:52] LABS: Appearance Urine Clear (Clear); Bilirubin Urine Negative (Negative); Blood Urine Negative (Negative); Color Urine Yellow (Yellow); Glucose Urine Negative (Negative); Ketones Urine 1+ (Negative); Leukocyte Esterase Urine Negative (Negative); Nitrite Urine Negative (Negative); Protein Urine 1+ (Negative); Specific Gravity Urine >= 1.030 (1.000-1.030); Urobilinogen Urine 0.2 (0.2-1.0)
[2024-04-21 15:53] LABS: Albumin* 5.1 g/dL (3.3-5.0); Chloride* 104 mmol/L (96-114)
[2024-04-21 15:54] LABS: Potassium* 3.9 mmol/L (3.6-5.1); Sodium* 138 mmol/L (135-149)
[2024-04-21 15:56] LABS: Creatinine* 0.8 mg/dL (0.5-1.5); Estimated Glomerular Filt Rate 126 ml/min
[2024-04-21 15:57] LABS: Alanine Aminotransferase* 36 U/L (4-50); Alkaline Phosphatase* 107 U/L (40-150); Anion Gap 12 mEq/L (7-15); Aspartate Amino Transferase* 32 U/L (12-35); Bilirubin Total* 0.5 mg/dL (0.1-1.5); Blood Urea Nitrogen* 12 mg/dL (5-24); Calcium* 9.7 mg/dL (8.4-10.6); Carbon Dioxide* 22 mmol/L (20-32); Glucose* 99 mg/dL (60-115); Total Protein* 8.5 g/dL (6.0-8.3)
[2024-04-21 16:03] LABS: Bacteria Urine Few; RBC Urine 0-2 (0-2); Squamous Epithelial Cell Urine Few (None-Few); WBC Urine 0-2 (0-5)
[2024-04-21 16:06] LABS: C Reactive Protein* < 0.5 mg/dL (0.5-1.0)
[2024-04-21 16:07] LABS: Hyaline Casts Urine Few (None-Few); Mucus Urine Few
[2024-04-21 16:12] LABS: Strep A DNA Probe* NOT DETECTED (Not Detectd)
[2024-04-21 16:25] LABS: PCR FLU A Negative PCR FLU A (Negative); PCR FLU B Negative PCR FLU B (Negative); PCR RSV Negative PCR RSV (Negative); SARS PCR* Negative SARS-CoV-2 (Negative)
[2024-04-21 18:06] LABS: D Dimer Quantitative* < 0.27 ug/ml (0.00-0.50)
== END 2024-04-21 18:20 | disposition home or self-care (01) ==
PROVIDERS: Emergency Provider Family Medicine; Visit Provider Family Medicine
DX: R07.9 Chest pain, unspecified (principal); R51.9 Headache, unspecified
CPT/HCPCS: 36415; 71045; 80053; 81001; 84484; 85025; 85379; 86140; 87086; 87631; 87651; 93005; 96365; 96375; 99284; 99285; J1200; J2765; J7030